=== PATIENT | female | born 1965 | race Two or more races ===

== ENCOUNTER 2017-05-07 09:37 | Emergency (ER) | payer OTHER ==
[~2017-05-07] VITALS: Ht 157.5 cm; Wt 56.0 kg
[~2017-05-07 09:37] MED LIST: ASPI-664 PO; ATOR40TA68 PO
[2017-05-07 09:38] VITALS: Ht 157.5 cm; Wt 56.0 kg
--- NOTE | 2017-05-07 10:03 | ERD ---
ER Documentation Chief Complaint Chief Complaint CLIFFORD & DIZZINESS S/P PIECE OF WOOD FALL ON FACE SUNDAY, +KO HPI 52-year-old female comes emergency department with a head injury that occurred 3 days ago and is complaining of frontal headache and lightheadedness. She states that she was trying to get something out of her closet and a large piece of what had fallen onto her face and she states that she might have blacked out for a second or 2. It hit the frontal aspect in the bridge of her nose and she had some facial swelling, swelling has improved but she now has developed a throbbing headache. She denies any nausea, vomiting no visual changes, no diplopia, no weakness or paresthesias. ROS All systems reviewed and are negative except as per history of present illness. Medications Home Meds Active Scripts Ibuprofen* (Motrin*) 400 Mg Tab, 400 MG PO Q6, #30 TAB Prov:ERICH DAVIES PA-C 05/07/17 Acetaminophen* (Tylophen*) 500 Mg Capsule, 1 CAP PO Q6H Y for PAIN AND OR ELEVATED TEMP, #20 CAP Prov:ERICH DAVIES PA-C 05/07/17 Atorvastatin* (Atorvastatin*) 40 Mg Tablet, 40 MG PO HS, #30 TAB Prov:SPEEDY PUGH MD 05/04/16 Reported Medications Aspirin* (Aspirin* EC) 81 Mg Tablet., 81 MG PO DAILY, TAB 05/03/16 Allergies Allergies: Coded Allergies: Penicillins (Verified Allergy, Mild, 05/03/16) PMhx/Soc History of Surgery: No Anesthesia Reaction: No Hx Neurological Disorder: No Hx Cardiac Disorders: Yes (pt states she had angiogram 10 years ago) Hx Psychiatric Problems: No Hx Miscellaneous Medical Probl: No Hx Alcohol Use: Yes Hx Substance Use: No Hx Tobacco Use: No Physical Exam Vitals Vital Signs Date Time Temp Pulse Resp B/P Pulse Ox O2 Delivery O2 Flow Rate FiO2 05/07/17 09:38 97.4 106 20 140/70 100 Physical Exam General: Well-developed, well-nourished. The patient appears in no acute distress. HEENT: Head is normocephalic, atraumatic. No scleral icterus. Pupils are equal , round, and reactive. Left nasal bridge swelling and tenderness, there is no septal hematoma Neck: Supple. Nontender. No midline tenderness, has full range of motion Lungs: Clear to auscultation. Normal air movement. Heart: Regular rate and rhythm. S1 and S2 are normal. No murmurs, gallops, or rubs. Abdomen: Soft, nontender, nondistended. Bowel sounds are normoactive. Extremities: No clubbing or cyanosis. Normal pulses. Moving extremities x 4. No weakness. Neurologic: Alert and oriented 3. No focal deficits. Patient gait normal, cranial nerves II through XII grossly intact, no cerebellar signs. Skin: Normal turgor. No rash or lesions. Results 24 hrs DIAGNOSTIC IMAGING REPORT Patient: CAT AUSTIN : 1965 Age: 52 Sex: F MR #: [id number] DOS: 05/07/17 0947 Ordering MD: ERICH DAVIES PA-C Location: [facility] Room/Bed: PROCEDURE: CT Brain without contrast. CLINICAL INDICATION: Pain, headache TECHNIQUE: Routine CT scan of the brain was performed on a high resolution multi detector scanner without intravenous contrast. One or more of the following dose reduction techniques were used: Automated exposure control; Adjustment of the mA and/or kV according to patient size; Use of iterative reconstruction technique. CTDI = 44 mGy. DLP = 720 mGy-cm. DICOM images are available. COMPARISON: No prior relevant examinations are available for comparison. FINDINGS: Hemorrhage: No evidence of intracranial hemorrhage. Acute ischemic changes: No evidence of acute ischemic changes. Mass effect: None. Parenchymal volume: Within normal limits for age. Ventricular system: Concordant with parenchymal volume. Chronic changes: Parenchymal attenuation is within normal limits. Extracranial soft tissues: Unremarkable. Calvarium: No fractures. Paranasal sinuses: Visualized paranasal sinuses are clear. Mastoid air cells: Visualized mastoid air cells are clear. IMPRESSION: No acute intracranial abnormalities. Normal appearance of the brain parenchyma. RPTAT: AADD .Familia Hannon MD, MD Date Time Electronically viewed and signed by .Familia Hannon MD, on 05/07/2017 10:33 .B/ DIAGNOSTIC IMAGING REPORT Patient: CAT AUSTIN : 1965 Age: 52 Sex: F MR #: [id number] DOS: 05/07/17 0947 Ordering MD: ERICH DAVIES PA-C Location: [facility] Room/Bed: PROCEDURE: CT scan facial bones without contrast. CLINICAL INDICATION: Facial pain TECHNIQUE: Routine CT scan of the maxillofacial structures was performed on a high resolution multidetector scanner without intravenous contrast. One or more of the following dose reduction techniques were used: Automated exposure control ; Adjustment of the mA and/or kV according to patient size; Use of iterative reconstruction technique. CTDI = 29 mGy. DLP = 497 mGy-cm. DICOM images are available. COMPARISON: No prior examinations are available for comparison. FINDINGS: Extracranial soft tissues: Normal Orbits: The osseous orbits are normal. Sinuses: Clear. Skull base: No fractures. Maxilla/Mandible: No erosive changes or fractures. Suprahyoid neck: Within normal limits. Lymph nodes: No evidence of abnormal morphology or attenuation by CT criteria. Cervical spine: Partially visualized structures appear normal. IMPRESSION: No fractures or significant soft tissue swelling. RPTAT: AADD .Familia Hannon MD, MD Date Time Electronically viewed and signed by .Familia Hannon MD, on 05/07/2017 10:37 Procedures/MDM 52-year-old female comes in with headache after experiencing a head injury and contusion to the face, CT scan of the head is negative for acute fracture intracranial hemorrhage and CT scan of the face is negative for fractures. The patient presents with facial pain and frontal headache, likely from the contusion with soft tissue swelling. Neurologic examination is normal she is stable for discharge. Departure Diagnosis: Primary Impression: Head injury Condition: Good ERICH DAVIES PA-C May 07, 2017 10:03
--- NOTE | 2017-05-07 10:33 | RADRPT ---
PROCEDURE: CT Brain without contrast. CLINICAL INDICATION: Pain, headache TECHNIQUE: Routine CT scan of the brain was performed on a high resolution multi detector scanner without intravenous contrast. One or more of the following dose reduction techniques were used: Auto mated exposure control; Adjustment of the mA and/or kV according to patient size; Use of iterative r econstruction technique. CTDI = 44 mGy. DLP = 720 mGy-cm. DICOM images are available. COMPARISON: No prior relevant examinations are available for comparison. FINDINGS: Hemorrhage: No evidence of intracranial hemorrhage. Acute ischemic changes: No evidence of acute ischemic changes. Mass effect: None. Parenchymal volume: Within normal limits for age. Ventricular system: Concordant with parenchymal volume. Chronic changes: Parenchymal attenuation is within normal limits. Extracranial soft tissues: Unremarkable. Calvarium: No fractures. Paranasal sinuses: Visualized paranasal sinuses are clear. Mastoid air cells: Visualized mastoid air cells are clear. IMPRESSION: No acute intracranial abnormalities. Normal appearance of the brain parenchyma. RPTAT: AADD .Familia Hannon MD, MD Date Time Electronically viewed and signed by .Familia Hannon MD, on 05/07/2017 10:33 .B/
--- NOTE | 2017-05-07 10:38 | RADRPT ---
PROCEDURE: CT scan facial bones without contrast. CLINICAL INDICATION: Facial pain TECHNIQUE: Routine CT scan of the maxillofacial structures was performed on a high resolution [employer] idetector scanner without intravenous contrast. One or more of the following dose reduction techniqu es were used: Automated exposure control; Adjustment of the mA and/or kV according to patient size; Use of iterative reconstruction technique. CTDI = 29 mGy. DLP = 497 mGy-cm. DICOM images are availab le. COMPARISON: No prior examinations are available for comparison. FINDINGS: Extracranial soft tissues: Normal Orbits: The osseous orbits are normal. Sinuses: Clear. Skull base: No fractures. Maxilla/Mandible: No erosive changes or fractures. Suprahyoid neck: Within normal limits. Lymph nodes: No evidence of abnormal morphology or attenuation by CT criteria. Cervical spine: Partially visualized structures appear normal. IMPRESSION: No fractures or significant soft tissue swelling. RPTAT: AADD .Familia Hannon MD, MD Date Time Electronically viewed and signed by .Familia Hannon MD, on 05/07/2017 10:37 .B/
[2017-05-07] MEDS ORDERED: ACET500C5 PO (10:44)
[2017-05-07] MEDS ORDERED: IBUP400T22 PO (10:44)
== END 2017-05-07 10:56 | disposition home or self-care (01) ==
LOC: FTE 09:37
DX: S09.90XA Unspecified injury of head, initial encounter (principal); R51 Headache; W20.8XXA Other cause of strike by thrown, projected or falling object, initial encounter; Y92.9 Unspecified place or not applicable; Z79.82 Long term (current) use of aspirin
CPT/HCPCS: 70450; 70486; Z7502

== ENCOUNTER 2017-09-19 02:05 | Inpatient (IN) | END 2017-09-19 17:35 | disposition home or self-care (01) | DRG 313 ==